=== PATIENT | male | born 1960 | race Hispanic/Latino ===

== ENCOUNTER 2022-07-08 05:48 | Day surgery (SDC) | payer OTHER ==
[2022-07-07 10:32] VITALS: BP 140/75
[2022-07-07 10:37] LABS: BASOPHILS % (AUTO) 0.4 % (0.0-5.0); EOSINOPHILS % (AUTO) 1.5 % (0.0-8.0); HEMATOCRIT 44.6 % (42-54); LYMPHOCYTES % (AUTO) 31.5 % (21.0-51.0); MEAN CORPUSCULAR HEMOGLOBIN 29.5 pg (27.0-33.0); MEAN CORPUSCULAR HGB CONC 33.2 g/dL (32.0-36.0); MEAN CORPUSCULAR VOLUME 88.8 fL (79-99); MONOCYTES % (AUTO) 8.6 % (3.0-13.0); NEUTROPHILS % (AUTO) 57.6 % (40.0-77.0); PLATELET COUNT (AUTO) 238 K/uL (130-400); RED BLOOD CELL COUNT(AUTO) 5.02 MIL/uL (4.50-6.20); RED CELL DISTRIBUTION WIDTH 12.3 % (11.0-15.5); WHITE BLOOD COUNT (AUTO) 6.8 K/uL (4.8-10.8)
[2022-07-07 10:49] LABS: CREATININE 1.1 mg/dL (0.5-1.5); POTASSIUM 4.6 mmol/L (3.5-5.1)
[2022-07-08] VITALS (17 sets, daily range): BP systolic 111–144; BP diastolic 56–82
[~2022-07-08] VITALS: Ht 172.7 cm; Wt 89.8 kg
[~2022-07-08 05:48] MED LIST: IBUP-2077 PO
[2022-07-08] MEDS ORDERED: LACTATED RINGERS 1000ML 1,000 ML IV ONE (06:51)
[2022-07-08] MEDS ORDERED: CEFAZOLIN SODIUM 1 GM VIAL ONE (06:51)
[2022-07-08] MEDS ORDERED: LIDOCAINE PF 100MG/5ML (2%) SYRINGE 5ML ONE ×2 (07:14→10:19)
[2022-07-08] MEDS ORDERED: SUCCINYLCHOLINE 200MG/10ML SYR ONE (07:14)
[2022-07-08] MEDS ORDERED: PROPOFOL 10 MG/ML 20ML VIAL IV ONE (07:15)
[2022-07-08] MEDS ORDERED: GLYCOPYRROLATE 1 MG/5 ML SYRINGE ONE (07:15)
[2022-07-08] MEDS ORDERED: DEXAMETHASONE SOD PHOSPHATE 10MG/ML 1ML VIAL ONE (07:15)
[2022-07-08] MEDS ORDERED: NEOSTIGMINE 5MG/5ML SYR IV ONE (07:15)
[2022-07-08] MEDS ORDERED: ONDANSETRON 4MG INJ ONE (07:15)
[2022-07-08] MEDS ORDERED: ROCURONIUM 10MG/1ML SYR 10 MG/ML ML ONE (07:16)
[2022-07-08] MEDS ORDERED: FENTANYL CITRATE PF 50 MCG/1 ML 2ML VIAL ONE (07:16)
[2022-07-08] MEDS ORDERED: MIDAZOLAM HCL 1 MG/ML 2ML VIAL ONE (07:16)
[2022-07-08] MEDS ORDERED: ROPIVACAINE 0.5% 5MG/ML 30ML IJ ONE (07:23)
[2022-07-08] MEDS ORDERED: CEFAZOLIN SODIUM 2 GM VIAL IVPB ONE (08:49)
[2022-07-08] MEDS ORDERED: KETOROLAC 30MG VIAL (30MG/ML) ONE (09:34)
== END 2022-07-08 12:35 | disposition home or self-care (01) ==
LOC: DAH 05:48
PROVIDERS: ATTEND Orthopaedic Surgery
DX: S46.011A Strain of muscle(s) and tendon(s) of the rotator cuff of right shoulder, initial encounter (principal); Z20.822 Contact with and (suspected) exposure to COVID-19; S46.111A Strain of muscle, fascia and tendon of long head of biceps, right arm, initial encounter; K21.9 Gastro-esophageal reflux disease without esophagitis; E66.9 Obesity, unspecified; M54.12 Radiculopathy, cervical region; Z68.30 Body mass index [BMI] 30.0-30.9, adult; X58.XXXA Exposure to other specified factors, initial encounter; Y99.0 Civilian activity done for income or pay; Y92.89 Other specified places as the place of occurrence of the external cause
CPT/HCPCS: 87426; 80048; 85025; 36415; 93005; 23412; 64415; 29805; A6260; A4663; A6207; J7120 ×2; A4565; J3010; J0690 ×2; J0330; J3490; J1100; J2710; J2001 ×2; J2250; J2704; J2405; J1885; J2795; A4248; A4649; C1713 ×2; C1762; A5120; A4215; A4223; A4222; A4221; A4600